=== PATIENT | female | born 1945 | race Caucasian/White ===

== ENCOUNTER 2022-04-05 14:54 | Emergency (ER) | payer BC, OTHER ==
--- OUTSIDE RECORDS SUMMARY | 2022-04-05 15:01 | XMS REPORT | Continuity of Care Document ---
:1945 Author Organization [facility] t Address [address] [place] [address] Care Team Providers Name Role Phone SAROJ CALIX Attending Clinician Unavailable GC_SWHATBIC_Cone_S Attending Clinician Unavailable Mackenzie Beckford Attending Clinician Unavailable GC_SWHATBIC_Cone_S Admitting Clinician Unavailable Payers Payer Name Policy Type Policy Number Effective Date Expiration Date S ource PPO/EPO - BCBS [id number] INDEMNITY/TRADITI [id number] 2015 00:00:00 [place] CHO[place] [id number] 2019 00:00:00 [place]) [id number] 2008 00:00:00 Problems This patient has no known problems. Allergies, Adverse Reactions, Alerts Allergy Allergy Status Severity Reaction(s) Onset Inactive Treating Comm ents Source Name Type Date Date Clinician Sulfamet Drug Active Rash 2015-[address] [facility] hoxazole Allergy 05-12 [facility] No Known DA Active [facility] 09[facility]18 [facility] [place] Social History Social Habit Start Date Stop Date Quantity Comments Source Alcohol intake 2016-03-11 2016-03-11 Current drinker [facility]RIANNA [facility] (finding) Sex Assigned At [birth year] [facility] kes 00:00:00 00:00:00 [facility] Center Smoking Status Start Date Stop Date Source Never smoker [facility] Medications Ordered Filled Start Stop Current Ordering Indication Dosage Frequency Signature Comments Components Source Medication Medication Date Date Medication? Clinician (SIG) Name Name difjaniepredna 2015-03 Yes Apply to [facility] 2-15 eye(s). [facility] (DUREZOL) 10:39: Medical 0.05 % Drop 54 Center bromfenac 2015-03 Yes Apply to [facility] St (PROLENSA) 2-15 eye(s). [facility] 0.07 % Drop 10:39: Medica l 54 Center polymyxin B 2015-03 Yes 1[drp] Place [address] sulf-trimet 2-15 drop into Bak[facility] es hoprim 10:39: the left Medical (POLYTRIM) 54 eye every Cent er 10,000 4 (four) unit- 1 hours. mg/mL Drop FOLIC 2015-03 Yes Take by [facility] ACID/MULTIV 2-15 mouth. [facility] IT-MIN/LUTE 10:39: Medica l [place] (CENTRUM 54 Center SILVER ORAL) VIT C/VIT 2015-03 Yes [facility] by [facility] E/[place]IN/[place] 2-15 mouth. [facility] N/OMEGA-3 10:39: Medical (OCUVITE 54 Center ORAL) docusate 2015-03 Yes 100mg Q.5D Take [address] sodium 2-15 mg by [facility] (COLACE) 10:39: mouth 2 Medica l 100 MG 54 (two) Center capsule times daily. Procedures Procedure Date / Time Performed Performing Clinician Souleymane martinez YAG CAPSULOTOMY - OS - 2021-12-18 12:30:07 [facility] EYE Medicine Encounters Start End Encounter Admission Attending Care Care Encounter Source Date/Time Date/Time Type Type Clinicians Facility Department ID 2021-12-30 2021-12-30 Outpatient CATRINA CALIX [id number] [facility] 13:52:03 14:57:09 SAROJ simental of Medicin e 2021-12-29 2021-12-29 Outpatient GC_SWHATBIC PRIV PRIV [id number] [facility] 00:00:00 00:00:00 _Cone_S [id number] Medica l 2021-12-18 2021-12-18 Outpatient CATRINA CALIX BCM [id number] [facility] 10:59:01 12:22:16 SAROJ Colle ge of Medicin e 2021-10-02 2021-10-02 Outpatient CATRINA CALIX BCM [id number] [facility] 13:36:44 15:02:10 SAROJ Colle ge of Medicin e 2021-01-06 2021-01-06 Outpatient GC_SWHATBIC PRIV PRIV [id number] [facility] 00:00:00 00:00:00 _Cone_S [id number] Medica l 2019-10-29 2019-10-29 Outpatient DASHAWN Beckford [id number] [facility] 13:51:00 13:51:00 Mackenzie Grant Results Test Description Test Time Test Comments Results Result [facility] e Comments - US TRANSVAGINAL 2018-04-24 Patient Name: W/PELVIS 16:01:00 JUDAH AMAYA Unit No: [id number] Report Has Been Amended EXAMS: CPT CODE: [id number] US TRANSVAGINAL W/PELVIS 73808 Addendum - 04/24/2018 SIGNED 04/24/2018 ADDENDUM: [id number] US/TRANPL ADDENDUM: The findings and impression were discussed with Dr. Villagran on 04/24/2018 at approximately 1600 hours. at 1601 Reported and signed by: Lizett Grimaldo MD Transcribed: 04/24/2018 (1606) tLINDA.[facility] Report EXAMINATION: Pelvic ultrasound 04/24/2018. CLINICAL HISTORY: Postmenopausal bleeding. COMPARISON: None. FINDINGS: Transabdominal and transvaginal pelvic ultrasound was performed. The uterus measures 68 x 34 x 48 mm. The endometrium measures 17 mm in AP diameter. There is a posterior intramural fibroid which measures 11 x 8 x 12 mm. The ovaries are visualized transabdominally only. They are within normal limits in appearance. The right ovary measures 18 x 8 x 10 mm and the left ovary measures 14 x 6 x 12 mm. No free fluid is present in the pelvis. IMPRESSION: 1. Prominent endometrium. In this patient with postmenopausal bleeding, considerations include endometrial hyperplasia, endometrial polyp, and endometrial carcinoma. Further evaluation with endometrial biopsy is recommended. at 1556 Reported and signed by: Lizett Grimaldo MD CC: Dulce Villagran Technologist: Trini Mclain RDMS Probe: [id number] Trnscrbd D/ (0421) t.SDR.WSC Orig Print D/T: S: 04/24/2018 (5862) [facility] NAME: JOSE LUISJUDAHMARIBEL AL Radiology Department PHYS: Dulce Jimenez MD [address] : 1945 AGE: 72 SEX: F [place] [address] LOC: [place].RAD PHONE #: [phone] EXAM DATE: 04/24/2018 STATUS: REG CLI FAX #: [phone] RAD NO: Page 1 Signed Report Patient Name: JUDAH AMAYA Unit No: [id number] Report Has Been Amended EXAMS: CPT CODE: [id number] US TRANSVAGINAL W/PELVIS 87063 (Continued) [facility] NAME: JUDAH AMAYA SERVANDO Radiology Department PHYS: Dulce Jimenez MD [address] : 1945 AGE: 72 SEX: F [place] [address] LOC: [place].RAD PHONE #: [phone] EXAM DATE: 04/24/2018 STATUS: REG CLI FAX #: [phone] RAD NO: Page 2 Signed Report - US PELVIS 2018-04-24 Patient Name: CAPRICE 16:01:00 JUDAH AMAYA Unit No: [id number] Report Has Been Amended EXAMS: CPT CODE: [id number] US PELVIS COMPLETE 22985 Addendum - 04/24/2018 SIGNED 04/24/2018 ADDENDUM: [id number] US/USPELNOBC ADDENDUM: The findings and impression were discussed with Dr. Villagran on 04/24/2018 at approximately 1600 hours. at 1601 Reported and signed by: Lizett Grimaldo MD Transcribed: 04/24/2018 (1601) [facility] Report EXAMINATION: Pelvic ultrasound 04/24/2018. CLINICAL HISTORY: Postmenopausal bleeding. COMPARISON: None. FINDINGS: Transabdominal and transvaginal pelvic ultrasound was performed. The uterus measures 68 x 34 x 48 mm. The endometrium measures 17 mm in AP diameter. There is a posterior intramural fibroid which measures 11 x 8 x 12 mm. The ovaries are visualized transabdominally only. They are within normal limits in appearance. The right ovary measures 18 x 8 x 10 mm and the left ovary measures 14 x 6 x 12 mm. No free fluid is present in the pelvis. IMPRESSION: 1. Prominent endometrium. In this patient with postmenopausal bleeding, considerations include endometrial hyperplasia, endometrial polyp, and endometrial carcinoma. Further evaluation with endometrial biopsy is recommended. at 1556 Reported and signed by: Lizett Grimaldo MD CC: Dulce Villagran Technologist: Trini Mclain RDMS Probe: Trnscrbd D/ (0456) [facility] Orig Print D/T: S: 04/24/2018 (7867) [facility] NAME: JUDAH AMAYA Radiology Department PHYS: Dulce Jimenez MD [address] : 1945 AGE: 72 SEX: F [place], [place] [address] LOC: F.RAD PHONE #: [phone] EXAM DATE: 04/24/2018 STATUS: REG CLI FAX #: [phone] RAD NO: Page 1 Signed Report Patient Name: JUDAH AMAYA SERVANDO Unit No: [id number] Report Has Been Amended EXAMS: CPT CODE: [id number] US PELVIS COMPLETE 83423 (Continued) [facility] NAME: JUDAH AMAAY Radiology Department PHYS: Dulce Jimenez MD [address] : 1945 AGE: 72 SEX: F [place] [address] LOC: [place].RAD PHONE #: [phone] EXAM DATE: 04/24/2018 STATUS: REG CLI FAX #: [phone] RAD NO: Page 2 Signed Report - US TRANSVAGINAL 2018-04-24 Patient Name: W/PELVIS 15:56:00 JUDAH AMAYA Unit No: [id number] EXAMS: CPT CODE: [id number] US TRANSVAGINAL W/PELVIS 62098 EXAMINATION: Pelvic ultrasound 04/24/2018. CLINICAL HISTORY: Postmenopausal bleeding. COMPARISON: None. FINDINGS: Transabdominal and transvaginal pelvic ultrasound was performed. The uterus measures 68 x 34 x 48 mm. The endometrium measures 17 mm in AP diameter. There is a posterior intramural fibroid which measures 11 x 8 x 12 mm. The ovaries are visualized transabdominally only. They are within normal limits in appearance. The right ovary measures 18 x 8 x 10 mm and the left ovary measures 14 x 6 x 12 mm. No free fluid is present in the pelvis. IMPRESSION: 1. Prominent endometrium. In this patient with postmenopausal bleeding, considerations include endometrial hyperplasia, endometrial polyp, and endometrial carcinoma. Further evaluation with endometrial biopsy is recommended. at 1556 Reported and signed by: Lizett Grimaldo MD CC: Dulce Villagran Technologist: Trini Mclain RDMS Probe: [id number] Trnscrbd D/ (1556) t.SDR.[facility] Orig Print D/T: S: 04/24/2018 (3097) [facility] NAME: AMAYAJUDAH SERVANDO Radiology Department PHYS: Dulce Jimenez MD [address] : 1945 AGE: 72 SEX: F [place] [address] LOC: [place].RAD PHONE #: [phone] EXAM DATE: 04/24/2018 STATUS: REG CLI FAX #: [phone] RAD NO: Page 1 Signed Report Patient Name: JUDAH AMAYA Unit No: [id number] EXAMS: CPT CODE: [id number] US TRANSVAGINAL W/PELVIS 42163 (Continued) [facility] NAME: JUDAH AMAYA Radiology Department PHYS: Dulce Jimenez MD [address] : 1945 AGE: 72 SEX: F [place] [address] LOC: F.RAD PHONE #: [phone] EXAM DATE: 04/24/2018 STATUS: REG CLI FAX #: [phone] RAD NO: Page 2 Signed Report - US PELVIS 2018-04-24 Patient Name: COMPLETE 15:56:00 JUDAH AMAYA Unit No: [id number] EXAMS: CPT CODE: [id number] US PELVIS COMPLETE 46725 EXAMINATION: Pelvic ultrasound 04/24/2018. CLINICAL HISTORY: Postmenopausal bleeding. COMPARISON: None. FINDINGS: Transabdominal and transvaginal pelvic ultrasound was performed. The uterus measures 68 x 34 x 48 mm. The endometrium measures 17 mm in AP diameter. There is a posterior intramural fibroid which measures 11 x 8 x 12 mm. The ovaries are visualized transabdominally only. They are within normal limits in appearance. The right ovary measures 18 x 8 x 10 mm and the left ovary measures 14 x 6 x 12 mm. No free fluid is present in the pelvis. IMPRESSION: 1. Prominent endometrium. In this patient with postmenopausal bleeding, considerations include endometrial hyperplasia, endometrial polyp, and endometrial carcinoma. Further evaluation with endometrial biopsy is recommended. at 1556 Reported and signed by: Lizett Grimaldo MD CC: Dulce Villagran Technologist: Trini Mclain RDMS Probe: Trnscrbd D/ (1556) Isaiah Orig Print D/T: S: 04/24/2018 (1559) [facility] NAME: JUDAH AMAYA Radiology Department PHYS: Dulce Jimenez MD [address] : 1945 AGE: 72 SEX: F [place], [place] [address] LOC: [facility]erRAD PHONE #: [phone] EXAM DATE: 04/24/2018 STATUS: REG CLI FAX #: [phone] RAD NO: Page 1 Signed Report Patient Name: JUDAH AMAYA Unit No: [id number] EXAMS: CPT CODE: [id number] US PELVIS COMPLETE 24905 (Continued) [facility] NAME: MARCI AMAYAMARIBEL AL Radiology Department PHYS: Dulce Jimenez MD [address] : 1945 AGE: 72 SEX: F [place], [place] [address] LOC: [facility] PHONE #: [phone] EXAM DATE: 04/24/2018 STATUS: REG CLI FAX #: [phone] RAD NO: Page 2 Signed Report
[2022-04-05] MEDS ORDERED: LIDOCAINE 1% MPF 5 ML VIAL ONE (15:26)
[2022-04-05] MEDS ORDERED: LIDOCAINE 1% MPF 30 ML VIAL ONE (15:39)
--- NOTE | 2022-04-05 15:44 | RAD REPORT ---
EXAM DESCRIPTION: CT - CTHCSPWOC - 04/05/2022 3:28 pm CLINICAL HISTORY: Trauma, head and neck injury. fall COMPARISON: No comparisons TECHNIQUE: Axial 5 mm thick images of the head were obtained. Axial 2 mm thick images of the cervical spine were obtained with sagittal and coronal reconstruction images generated and reviewed. All CT scans are performed using dose optimization technique as appropriate and may include automated exposure control or mA/KV adjustment according to patient size. FINDINGS: CT HEAD WITHOUT CONTRAST: No acute hemorrhage, hydrocephalus or extra-axial collection is identified.No areas of brain edema or midline shift. The paranasal sinuses and mastoids are clear.The calvarium is intact. CT CERVICAL SPINE WITHOUT CONTRAST: No fracture or subluxation.Mild mid and lower cervical degenerative spondylosis.No prevertebral soft tissues swelling is identified. Carotid atherosclerosis bilaterally. IMPRESSION: No acute intracranial or cervical spine findings.
[2022-04-05] MEDS ORDERED: ACETAMINOPHEN 325 MG TABLET ONE (16:20)
[2022-04-05] MEDS ORDERED: TDAP (DIPHTH,PERTUSS(ACELL),TET VAC) 0.5 ML VIAL IMVAC ONE (16:21)
[2022-04-05] MEDS ORDERED: HYDROCODONE/APAP 5/325 MG TAB ONE (16:21)
--- NOTE | 2022-04-05 16:37 | RAD REPORT ---
EXAM DESCRIPTION: RAD - Ankle Left 3 View - 04/05/2022 4:25 pm CLINICAL HISTORY: PAIN COMPARISON: No comparisons FINDINGS: Soft tissue swelling is seen about the ankle. The bones are demineralized. Moderate intert arsal degenerative changes. No acute fracture is evident. Prominent plantar calcaneal spur.
[2022-04-05] MEDS ORDERED: LIDOCAINE 1% W/EPI 1:100,000 30 ML VIAL SQ SCH (17:00)
--- NOTE | 2022-04-05 17:37 | ER ---
Nurse's Notes [facility] Name: Hilary Lowe Age: 76 yrs Sex: Female : 1945 Arrival Date: 04/05/2022 Time: 14:58 Bed 18 Private MD: Clint Anton Diagnosis: Laceration without foreign body of unspecified part of head;Sprain of ankle-left;Fall on same level from slipping, tripping and stumbling with subsequent striking against object Presentation: 04/05 15:05 Chief complaint: Patient states: I was on my way to my 6th period class, and she iw tripped up the stairs, hit head on the door frame, laceration to left side of forehead, no LOC , also thinks she twisted her ankle. 15:05 Acuity: KAMERON 4 iw 15:06 Coronavirus screen: At this time, the client does not indicate any symptoms associated iw with coronavirus-19. Ebola Screen: Patient negative for fever greater than or equal to 101.5 degrees Fahrenheit, and additional compatible Ebola Virus Disease symptoms Patient denies exposure to infectious person. Patient denies travel to an Ebola-affected area in the 21 days before illness onset. No symptoms or risks identified at this time. Initial Sepsis Screen: Does the patient meet any 2 criteria? No. Patient's initial sepsis screen is negative. Does the patient have a suspected source of infection? No. Patient's initial sepsis screen is negative. Risk Assessment: Do you want to hurt yourself or someone else? Patient reports no desire to harm self or others. Onset of symptoms was April 05, 2022. 15:06 Method Of Arrival: Ambulatory iw Historical: - Allergies: 15:08 Bactrim; iw - Home Meds: 15:07 None [Active]; iw - PMHx: 15:07 None; iw - Immunization history:: Adult Immunizations up to date, Client reports receiving the 2nd dose of the Covid vaccine. - Social history:: Smoking status: Patient denies any tobacco usage or history of. Patient/guardian denies using alcohol. Screenin:15 [facility] ED Fall Risk Assessment (Adult) History of falling in the last 3 months, ld1 including since admission Yes- single mechanical fall (1 pt) Confusion or Disorientation No (0 pts) Intoxicated or Sedated No (0 pts) Impaired Gait Yes (1 pt). Abuse screen: Denies threats or abuse. Denies injuries from another. Nutritional screening: No deficits noted. Tuberculosis screening: No symptoms or risk factors identified. Assessment: 16:15 Reassessment: See triage assessment. Pain: Complains of pain in forehead Pain does not ld1 radiate. Pain currently is 8 out of 10 on a pain scale. Quality of pain is described as throbbing. 16:15 Neuro: Level of Consciousness is awake, alert, obeys commands, Oriented to person, ld1 place, time, situation. Cardiovascular: Capillary refill < 3 seconds Patient's skin is warm and dry. Respiratory: Airway is patent Respiratory effort is even, unlabored. GI: Abdomen is round non-distended. : No signs and/or symptoms were reported regarding the genitourinary system. Injury Description: Laceration sustained to forehead a small amount of bleeding noted at this time. Vital Signs: 15:04 BP 191 / 100; Pulse 100; Resp 16; Temp 98.3; Pulse Ox 100% on R/A; iw 16:15 BP 179 / 89; Pulse 101; Resp 18; Pulse Ox 99% on R/A; ld1 16:15 Pain 8/10; ld1 ED Course: 14:58 Patient arrived in ED. mr 14:59 Clint Anton MD is Private Physician. mr 15:06 Triage completed. iw 15:08 Arm band placed on. iw 15:10 Ervin Aleman PA is PHCP. cp 15:10 Ervin Martino MD is Attending Physician. cp 15:10 Imelda Handy, KATHY is Primary Nurse. ld1 15:30 CT Head C Spine In Process Unspecified. EDMS 16:15 Patient has correct armband on for positive identification. Placed in gown. Bed in low ld1 position. Call light in reach. Side rails up X2. secured entrance monitor on. Pulse ox on. NIBP on. Door closed. Noise minimized. Warm blanket given. 16:15 No provider procedures requiring assistance completed. ld1 16:27 XRAY Ankle LEFT 3 view In Process Unspecified. EDMS 17:25 Wound care: to laceration located on face and left eye was cleaned with soaked in jw7 debrided using Patient tolerated well. 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 Exp: ld1 10/09/2022. Lot #: [id number]. } Route: IM; Site: left deltoid; 16:46 Follow up: Response: No adverse reaction ld1 16:25 Drug: Tylenol 650 mg Route: PO; ld1 16:46 Follow up: Response: No adverse reaction ld1 16:25 Drug: HYDROcodone-acetaminophen 5 mg-325 mg 1 tabs Route: PO; ld1 16:46 Follow up: Response: No adverse reaction ld1 16:46 Drug: Lidocaine-Epinephrine -1%: (1:100,000) 10 ml {Note: Administered by raf Atkinson.} Volume: 20 ml; Route: Infiltration; Medication: 16:15 VIS not applicable for this client. ld1 Outcome: 17:36 Discharge ordered by MD. garrison 18:29 Patient left the ED. ld1 Signatures: Dispatcher [employer] Lauren Gipson mr Trini Velazquez RN RN iw Ervin Aleman PA PA cp Dibbern, Lauren, RN RN Ashwini Lees jw7 Corrections: (The following items were deleted from the chart) 15:07 15:05 Chief complaint: Patient states: I was on my way to my 6th period class, and she iw tripped up the stairs, hit head on the door frame, laceration to left side of forehead, no LOC iw 15:08 15:04 Pulse 100bpm; Resp 16bpm; Pulse Ox 100% RA; Temp 98.3F; iw iw
--- NOTE | 2022-04-05 17:37 | EDPHYS ---
Physician Documentation [facility] Name: Hilary Lowe Age: 76 yrs Sex: Female : 1945 Arrival Date: 04/05/2022 Time: 14:58 Bed 18 Private MD: Clint Anton ED Physician Ervin Martino HPI: 04/05 15:30 This 76 yrs old Female presents to ER via Ambulatory with complaints of Fall Injury, cp Laceration To Forehead. 15:30 Details of fall: The patient fell from an upright position, while walking, and struck cp metal door. Onset: The symptoms/episode began/occurred just prior to arrival. Associated injuries: The patient sustained injury to the head, laceration, of the above left eye, left ankle, painful injury. Severity of symptoms: in the emergency department the symptoms are unchanged, despite home interventions. Patient reports losing balance while walking up stairs at school and striking head against metal part of door. No LOC. Historical: - Allergies: 15:08 Bactrim; iw - Home Meds: 15:07 None [Active]; iw - PMHx: 15:07 None; iw - Immunization history:: Adult Immunizations up to date, Client reports receiving the 2nd dose of the Covid vaccine. - Social history:: Smoking status: Patient denies any tobacco usage or history of. Patient/guardian denies using alcohol. ROS: 15:35 Constitutional: Negative for body aches, chills, fever, poor PO intake. cp 15:35 Eyes: Negative for injury, pain, redness, and discharge. cp 15:35 ENT: Negative for drainage from ear(s), ear pain, sore throat, difficulty swallowing, difficulty handling secretions. 15:35 Cardiovascular: Negative for chest pain, palpitations. 15:35 Respiratory: Negative for cough, shortness of breath, wheezing. 15:35 Abdomen/GI: Negative for abdominal pain, nausea, vomiting, and diarrhea. 15:35 MS/extremity: Positive for pain, of the left ankle. 15:35 Neuro: Positive for headache, Negative for altered mental status, dizziness, loss of consciousness, syncope, weakness. 15:35 All other systems are negative. Exam: 15:40 Constitutional: The patient appears in no acute distress, alert, awake, cp non-diaphoretic, non-toxic, well developed, well nourished. 15:40 Head/face: Noted is a laceration(s), that is deep, that is linear, of the above left cp eye. 15:40 Eyes: Pupils: equal, round, and reactive to light and accomodation, Extraocular movements: intact throughout, Conjunctiva: normal, no exudate, no injection, Sclera: no appreciated abnormality, Lids and lashes: appear normal, bilaterally. 15:40 ENT: External ear(s): are unremarkable, Ear canal(s): are normal, clear, TM's: dullness, bilaterally, Nose: is normal, Mouth: Lips: moist, Oral mucosa: moist, Posterior pharynx: Airway: no evidence of obstruction, patent. 15:40 Neck: C-spine: vertebral tenderness, is not appreciated, crepitus, is not appreciated, ROM/movement: pain, is not appreciated, limited range of motion, is not appreciated. 15:40 Chest/axilla: Inspection: normal. 15:40 Cardiovascular: Rate: tachycardic, Edema: is not appreciated, JVD: is not appreciated. 15:40 Respiratory: the patient does not display signs of respiratory distress, Respirations: normal, no use of accessory muscles, no retractions, labored breathing, is not present, Breath sounds: are clear throughout, no decreased breath sounds, no stridor, no wheezing. 15:40 Abdomen/GI: Inspection: abdomen appears normal, Palpation: abdomen is soft and non-tender, in all quadrants. 15:40 Back: pain, is absent, ROM is normal. 15:40 Musculoskeletal/extremity: Extremities: noted in the left ankle: tenderness, There is no evidence of decreased ROM, deformity, ROM: limited passive range of motion due to pain, in the left ankle. 15:40 Neuro: Orientation: to person, place \T\ time. Mentation: is normal, Motor: moves all fours, strength is normal, Sensation: is normal. Vital Signs: 15:04 BP 191 / 100; Pulse 100; Resp 16; Temp 98.3; Pulse Ox 100% on R/A; iw 16:15 BP 179 / 89; Pulse 101; Resp 18; Pulse Ox 99% on R/A; ld1 16:15 Pain 8/10; ld1 Laceration: 17:21 Wound Repair of 4cm ( 1.6in ) subcutaneous laceration to above left eye. Linear cp shaped.. Distal neuro/vascular/tendon intact. Anesthesia: Local anesthetic administered with 8 mls of 1% lidocaine w/ Epi. Wound prep: Simple cleansing by nurse. Skin closed with 7 5-0 Prolene using interrupted sutures and sterile technique. Subcutaneous tissue closed with 4 4-0 Vicryl using simple sutures and sterile technique. Dressed with Bacitracin, 4x4's. Patient tolerated well. MDM: 15:11 Patient medically screened. michela 16:00 Differential diagnosis: abrasion, closed head injury, contusion, fracture, laceration, cp multiple trauma. 17:35 Data reviewed: vital signs, nurses notes, radiologic studies, CT scan, plain films. cp 17:35 Counseling: I had a detailed discussion with the patient and/or guardian regarding: the cp historical points, exam findings, and any diagnostic results supporting the discharge/admit diagnosis, radiology results, the need for outpatient follow up, a family practitioner, to return to the emergency department if symptoms worsen or persist or if there are any questions or concerns that arise at home. 17:35 Response to treatment: the patient's symptoms have markedly improved after treatment, cp and as a result, I will discharge patient. Special discussion: Based on the patient's history, exam and DX evaluation, there is no indication for emergent intervention or inpatient TX. It is understood by the patient/guardian that if the SXs persist or worsen they need to return immediately for re-evaluation. 04/05 15:16 Order name: CT Head C Spine; Complete Time: 15:46 04/05 15:46 Interpretation: Reviewed report. 04/05 15:52 Order name: XRAY Ankle LEFT 3 view; Complete Time: 16:42 04/05 16:42 Interpretation: Report reviewed. 04/05 15:16 Order name: Dressing - Wound; Complete Time: 15:28 04/05 15:16 Order name: Gloves, Sterile; Complete Time: 15:28 04/05 15:16 Order name: Setup Suture Tray; Complete Time: 15:28 04/05 16:32 Order name: Wound Care: please clean and irrigate wound; Complete Time: 16:51 04/05 17:21 Order name: Wound dressing; Complete Time: 18:09 04/05 17:21 Order name: Tree wrap-joint; Complete Time: 18:09 cp Administered Medications: 16:25 Drug: Tetanus-Diphtheria Toxoid Adult 0.5 ml {Enrollment Management Coordinator: [employer] Exp: ld1 10/09/2022. Lot #: [id number]. } Route: IM; Site: left deltoid; 16:46 Follow up: Response: No adverse reaction ld1 16:25 Drug: Tylenol 650 mg Route: PO; ld1 16:46 Follow up: Response: No adverse reaction ld1 16:25 Drug: HYDROcodone-acetaminophen 5 mg-325 mg 1 tabs Route: PO; ld1 16:46 Follow up: Response: No adverse reaction ld1 16:46 Drug: Lidocaine-Epinephrine -1%: (1:100,000) 10 ml {Note: Administered by raf Atkinson.} Volume: 20 ml; Route: Infiltration; Disposition Summary: 04/05/22 17:36 Discharge Ordered Location: Home cp Problem: new cp Symptoms: have improved cp Condition: Stable cp Diagnosis - Laceration without foreign body of unspecified part of head cp - Sprain of ankle - left cp - Fall on same level from slipping, tripping and stumbling with subsequent striking cp against object Followup: cp - With: Private Physician - When: 1 week - Reason: Staple/Suture removal Discharge Instructions: - Discharge Summary Sheet cp - Ankle Sprain cp - Head Injury, Adult cp - Facial Laceration cp - Sutured Wound Care cp Forms: - Medication Reconciliation Form cp - Thank You Letter cp - Antibiotic Education cp - Prescription Opioid Use cp - Work release form ld1 Signatures: Dispatcher [employer] Ervin Becerra MD MD cha Williams, Irene, Ervin Pierson RN, PA PA cp Imelda Handy, RN RN ld1
[2022-04-05 19:40] VITALS: TEMP 98.3
[2022-04-05 19:42] VITALS: BP 179/89; O2SAT 99
== END 2022-04-05 18:29 | disposition home or self-care (01) ==
LOC: ER 14:54
PROC: 0HQ1XZZ Repair Face Skin, External Approach (ICD-10-PCS; principal; 2022-04-05)
DX: S01.81XA Laceration without foreign body of other part of head, initial encounter (principal); S93.402A Sprain of unspecified ligament of left ankle, initial encounter; W01.10XA Fall on same level from slipping, tripping and stumbling with subsequent striking against unspecified object, initial encounter; Z23 Encounter for immunization; Z88.1 Allergy status to other antibiotic agents
CPT/HCPCS: 70450; 72125; 90471; 90714; 99284; J2001

== ENCOUNTER 2022-04-16 15:50 | Emergency (ER) | payer OTHER ==
--- OUTSIDE RECORDS SUMMARY | 2022-04-16 15:53 | XMS REPORT | Continuity of Care Document ---
:1945 Author Organization [facility] t Address [address] [place] [address] Care Team Providers Name Role Phone PCP, PATIENT DOES NOT HAVE A Primary Care Physician Unavaila ble ZABRINA LAMA Attending Clinician Unavailable Zabrina Lama MD Attending Clinician SAROJ CALIX Attending Clinician Unavailable GC[facility]WHATBIC[facility]_S Attending Clinician Unavailable Mackeznie Beckford Attending Clinician Unavailable [facility]S Admitting Clinician Unavailable Payers Payer Name Policy Type Policy Number Effective Date Expiration Date S ource [employer] GENERIC [id number] 2022 00:00:00 PPO/EPO - BCBS [id number] INDEMNITY/TRADITI [id number] 2015 00:00:00 [place] CHO[place] [id number] 2019 00:00:00 [place]) [id number] 2008 00:00:00 Problems Condition Condition Condition Status Onset Resolution Last Treating Co mments Source Name Details Category Date Date Treatment Clinician Date No known No known Disease Unive rs active active ity of problems problems [facility] Allergies, Adverse Reactions, Alerts Allergy Allergy Status Severity Reaction(s) Onset Inactive Treating Comm ents Source Name Type Date Date Clinician SULFAMET DRUG Active High Rash 2015-03 Univers HOXAZOLE 2-15 ity of -TRIMETH 00:00: [place] OPRIM 00 Medical Branch Sulfamet Drug Active Rash 2015-03 [facility] hoxazole Allergy 2-15 [facility] 00:00: Medical oprim 00 Center No Known DA Active U [facility] Allergie [address] [facility] 00:[facility]: [facility] l [facility] [place] NO KNOWN Drug Active Univers ALLERGIE Class ity of S [facility] Social History Social Habit Start Date Stop Date Quantity Comments Source Exposure to 2022-04-04 2022-04-14 Not sure [facility] SARS-CoV-2 00:00:00 14:30:00 [facility] (event) Branch Alcohol intake 2016-03-11 2016-03-11 [facility] alcohol [facility] (finding) Sex Ass[birth year] At [birth year] BRIANNA Islas kes 00:00:00 00:00:00 Medical Center Smoking Status Start Date Stop Date Source Tobacco smoking consumption Univ ersity of [facility] unknown Branch Never smoker [facility] Medications Ordered Filled Start Stop Current Ordering Indication Dosage Frequency Signature Comments Components Source Medication Medication Date Date Medication? Clinician (SIG) Name Name No known No No known Unive rs medications -18 medication it y of 14:46: [address] No known No No known Unive rs medications -18 medication it y of 14:46: [address] No known No No known Unive rs medications -18 medication it y of 14:46: [address] polymyxin B 2015-03 Yes 1[drp] Place 1 [...] 2015-03 Yes Take by [facility] E/LUTEIN/ID 2-15 mouth. [facility] N/OMEGA-3 10:39: Medical (OCUVITE 54 Center ORAL) docusate 2015-03 Yes 100mg Q.5D Take [address] sodium 2-15 mg by [facility]ukes (COLACE) 10:39: mouth 2 Medica l 100 MG 54 (two) Center capsule times daily. diflupredna 2015-03 Yes Apply to [facility] te 2-15 eye(s). [facility] (DUREZOL) 10:39: Medical 0.05 % Drop 54 Center bromfenac 2015-03 Yes Apply to [facility] (PROLENSA) 2-15 eye(s). [facility] 0.07 % Drop 10:39: Medica l 54 Center diflupredna 2015-03 Yes Apply to [facility] te 2-15 eye(s). [facility] (DUREZOL) 10:39: Medical 0.05 % Drop 54 Center bromfenac 2015-03 Yes Apply to [facility] (PROLENSA) 2-15 eye(s). [facility] 0.07 % Drop 10:39: Medica l 54 Center polymyxin B 2015-03 Yes 1[drp] Place [address] sulf-trimet 2-15 drop into [facility] hopri 10:39: the left Medical (POLYTRIM) 54 eye every Cent er 10,000 4 (four) unit- 1 hours. mg/mL Drop FOLIC 2015-03 Yes Take by [facility] ACID/MULTIV 2-15 mouth. [facility] IT-MIN/LUTE 10:39: Medica l [place] (CENTRUM 54 Center SILVER ORAL) VIT C/VIT 2015-03 Yes Take by [facility] E/LUTEIN/ID 2-15 mouth. [facility] N/OMEGA-3 10:39: Medical (OCUVITE 54 Center ORAL) docusate 2015-03 Yes 100mg Q.5D Take [address] sodium 2-15 mg by Lukes (COLACE) 10:39: mouth 2 Medica l 100 MG 54 (two) Center capsule times daily. Immunizations Ordered Filled Immunization Date Status Comments [facility] e Immunization Name Name SARS-COV-2 COVID-19 2021-01-23 Completed Unive rsity of MODERNA 0.25ML 00:00:00 [place] Medi jan BOOSTER VACCINE Branch SARS-COV-2 COVID-19 2021-01-23 Completed Unive rsity of MODERNA 0.25ML 00:00:00 [place] Medi jan BOOSTER VACCINE Branch SARS-COV-2 COVID-19 2021-01-23 Completed Unive rsity of MODERNA 0.25ML 00:00:00 [facility] Vital Signs Vital Name Observation Time Observation Value Comments Source Systolic blood 2022-04-14 203 mm[Hg] pt request in 1 University of pressure 20:42:[address] [facility] Diastolic blood 2022-04-14 111 mm[Hg] pt request in 1 Universit y of pressure 20:42:[address] [facility] Heart rate 2022-04-14 101 /min University of 20:42:[address] [facility] Body height 2022-04-14 158.8 cm University of 20:42:[address] [facility] Body weight 2022-04-14 86.183 kg University of 20:42:[address] [facility] BMI 2022-04-14 34.20 kg/m2 University 20:42:[address] [facility] Procedures Procedure Date / Time Performed Performing Clinician Sour e YAG CAPSULOTOMY - OS - 2021-12-18 12:30:07 [facility] EYE Medicine Encounters Start End Encounter Admission Attending Care Care Encounter Source Date/Time Date/Time Type Type Clinicians Facility Department ID 2022-04-14 2022-04-14 [id number] Univers 14:30:00 15:29:02 ZABRINALESLY [place] [facility] 2022-04-14 2022-04-14 Office Kelby [facility] [id number] Univers 14:30:00 15:29:02 Visit Zabrina Sheehan [facility] [id number] it y of [place] [id number] James as ARELI?BLEA [id number] [address] MEDICAL OFFICE [facility] 2022-04-14 2022-04-14 [email or web address] [id number] Univers 00:00:00 00:00:00 (Out) Zabrina BHATTI [id number] it y of [place] [id number] James as ARELI?BLEA [id number] [address] MEDICAL OFFICE BUILDING 2021-12-30 2021-12-30 Outpatient CATRINA CALIX [facility] [id number] [facility] 13:52:03 14:57:09 SAROJ Colle ge of Medicin e 2021-12-29 2021-12-29 Outpatient GC_SWHATBIC PRIV PRIV [id number] [facility] 00:00:00 00:00:00 _[facility]_S [id number] Medica l 2021-12-18 2021-12-18 Outpatient CATRINA CALIX M [id number] [facility] 10:59:01 12:22:16 SAROJ Colle ge of Medicin e 2021-10-02 2021-10-02 Outpatient YOGI, Colt [facility] [id number] [facility] 13:36:44 15:02:10 SAROJ Colle ge of Medicin e 2021-01-06 2021-01-06 Outpatient GC_SWHATBIC PRIV PRIV [id number] [facility] 00:00:00 00:00:00 _[facility]_S [id number] Medica l 2019-10-29 2019-10-29 Outpatient DASHAWN Beckford [id number] [facility] 13:51:00 13:51:00 Mackenzie Grant Results Test Description Test Time Test Comments Results Result [facility] e Comments - US TRANSVAGINAL 2018-04-24 Patient Name: W/PELVIS 16:01:00 JUDAH LOWE Unit No: [id number] Report Has Been Amended EXAMS: CPT CODE: [id number] US TRANSVAGINAL W/PELVIS 81714 Addendum - 04/24/2018 SIGNED 04/24/2018 ADDENDUM: [id number] US/TRANPL ADDENDUM: The findings and impression were discussed with Dr. Villagran on 04/24/2018 at approximately 1600 hours. at 1601 Reported and signed by: Lizett Grimaldo MD Transcribed: 04/24/2018 (0248) [place] Report EXAMINATION: Pelvic ultrasound 04/24/2018. CLINICAL HISTORY: [...] Dulce Villagran Technologist: Trini Mclain RDMS Probe: [id number] Trnscrbd D/ (2208) t.VICTORINOR.[facility] Orig Print D/T: S: 04/24/2018 (7851) [facility] NAME: JOSE LUISJUDAHMARIBEL AL Radiology Department PHYS: Dulce Jimenez MD [address] : 1945 AGE: 72 SEX: F [place] [address] LOC: .RAD PHONE #: [phone] EXAM DATE: 04/24/2018 STATUS: REG CLI FAX #: [phone] RAD NO: Page 1 Signed Report Patient Name: JUDAH LOWE Unit No: [id number] Report Has Been Amended EXAMS: CPT CODE: [id number] US TRANSVAGINAL W/PELVIS 27684 (Continued) [facility] NAME: JUDAH LOWE Radiology Department PHYS: Dulce Jimenez MD [address] : 1945 AGE: 72 SEX: F [place] [address] LOC: Lwarence.RAD PHONE #: [phone] EXAM DATE: 04/24/2018 STATUS: REG CLI FAX #: [phone] RAD NO: Page 2 Signed Report - US PELVIS 2018-04-24 Patient Name: COMPLETE 16:01:00 JUDAH LOWE Unit No: [id number] Report Has Been Amended EXAMS: CPT CODE: [id number] US PELVIS COMPLETE [id number] Addendum - 04/24/2018 SIGNED 04/24/2018 ADDENDUM: [id number] US/USPELNOBC ADDENDUM: The findings and impression were discussed with Dr. Villagran on 04/24/2018 at approximately 1600 hours. at 1601 Reported and signed by: Lizett Grimaldo MD Transcribed: 04/24/2018 (5321) [facility] EXAMINATION: Pelvic ultrasound 04/24/2018. CLINICAL HISTORY: [...] evaluation with endometrial biopsy is recommended. at 1558 Reported and signed by: Lizett Grimaldo MD CC: Dulce Villagran Technologist: Trini Mclain RDMS Probe: Trnscrbd D/ (6888) [facility] Orig Print D/T: S: 04/24/2018 (2145) [facility] NAME: JUDAH LOWE Radiology Department PHYS: Dulce Jimenez MD [address] : 1945 AGE: 72 SEX: F [place], [place] [address] LOC: [place].RAD PHONE #: [phone] EXAM DATE: 04/24/2018 STATUS: REG CLI FAX #: [phone] RAD NO: Page 1 Signed Report Patient Name: JUDAH LOWE Unit No: [id number] Report Has Been Amended EXAMS: CPT CODE: [id number] US PELVIS COMPLETE 98300 (Continued) [facility] [place] NAME: JUDAH LOWE SERVANDO Radiology Department PHYS: Dulce Jimenez MD [address] : 1945 AGE: 72 SEX: F [place] [address] LOC: F.RAD PHONE #: [phone] EXAM DATE: 04/24/2018 STATUS: REG CLI FAX #: [phone] RAD NO: Page 2 Signed Report - US TRANSVAGINAL 2018-04-24 Patient Name: W/PELVIS 15:56:00 JUDAH LOWE Unit No: [id number] EXAMS: CPT CODE: [id number] US TRANSVAGINAL W/PELVIS 02887 EXAMINATION: Pelvic ultrasound 04/24/2018. CLINICAL HISTORY: Postmenopausal [...] signed by: Lizett Grimaldo MD CC: Dulce Vlilagran Technologist: Trini Mclain RDMS Probe: [id number] Trnscrbd D/ (1556) Isaiah Orig Print D/T: S: 04/24/2018 (0876) [facility] NAME: JUDAH LOWE Radiology Department PHYS: Dulce Jimenez MD [address] : 1945 AGE: 72 SEX: F [place], [place] [address] LOC: HuberRAD PHONE #: [phone] EXAM DATE: 04/24/2018 STATUS: REG CLI FAX #: [phone] RAD NO: Page 1 Signed Report Patient Name: JUDAH LOWE Unit No: [id number] EXAMS: CPT CODE: [id number] US TRANSVAGINAL W/PELVIS 88321 (Continued) [facility] NAME: JUDAH LOWE Radiology Department PHYS: Dulce Jimenez MD [address] : 1945 AGE: 72 SEX: F [place] [address] LOC: HuberRAD PHONE #: [phone] EXAM DATE: 04/24/2018 STATUS: REG CLI FAX #: [phone] RAD NO: Page 2 Signed Report - US PELVIS 2018-04-24 Patient Name: COMPLETE 15:56:00 JUDAH LOWE Unit No: [id number] EXAMS: CPT CODE: [id number] US PELVIS COMPLETE 43978 EXAMINATION: Pelvic ultrasound 04/24/2018. CLINICAL HISTORY: Postmenopausal [...] evaluation with endometrial biopsy is recommended. at 1557 Reported and signed by: Lizett Grimaldo MD CC: Dulce Villagran Technologist: Trini Mclain RDMS Probe: Trnscrbd D/ (0876) t.SDR.[facility] Orig Print D/T: S: 04/24/2018 (1559) [facility] NAME: JUDAH LOWE Radiology Department PHYS: Dulce Jimenez MD [address] : 1945 AGE: 72 SEX: F [place] [address] LOC: F.RAD PHONE #: [phone] EXAM DATE: 04/24/2018 STATUS: REG CLI FAX #: [phone] RAD NO: Page 1 Signed Report Patient Name: JUDAH LOWE SERVANDO Unit No: [id number] EXAMS: CPT CODE: [id number] US PELVIS COMPLETE 35388 (Continued) [facility] NAME: JUDAH LOWE Radiology Department PHYS: Dulce Jimenez MD [address] : 1945 AGE: 72 SEX: F [place] [address] LOC: F.RAD PHONE #: [phone] EXAM DATE: 04/24/2018 STATUS: REG CLI FAX #: [phone] RAD NO: Page 2 Signed Report
[2022-04-16] MEDS ORDERED: LIDOCAINE HCL JELLY 2% 6 ML SYRINGE TOP ONE (16:31)
--- NOTE | 2022-04-16 18:03 | ER ---
Nurse's Notes [facility] Name: Hilary Lowe Age: 76 yrs Sex: Female : 1945 Arrival Date: 04/16/2022 Time: 15:51 Bed 10 Private MD: Clint Anton Diagnosis: Encounter for removal of sutures Presentation: 04/16 15:59 Chief complaint: Patient states: needs sutures removed from left eyebrow has 4 internal iw and 7 external. Coronavirus screen: At this time, the client does not indicate any symptoms associated with coronavirus-19. Ebola Screen: Patient negative for fever greater than or equal to 101.5 degrees Fahrenheit, and additional compatible Ebola Virus Disease symptoms Patient denies exposure to infectious person. Patient denies travel to an Ebola-affected area in the 21 days before illness onset. No symptoms or risks identified at this time. Initial Sepsis Screen: Does the patient meet any 2 criteria? No. Patient's initial sepsis screen is negative. Does the patient have a suspected source of infection? No. Patient's initial sepsis screen is negative. Risk Assessment: Do you want to hurt yourself or someone else? Patient reports no desire to harm self or others. Onset of symptoms was April 05, 2022. 15:59 Method Of Arrival: Ambulatory iw 15:59 Acuity: KAMERON 5 iw Historical: - Allergies: 16:10 Bactrim; iw - Immunization history:: Adult Immunizations unknown. - Social history:: Smoking status: Patient denies any tobacco usage or history of. Screenin:10 [facility] ED Fall Risk Assessment (Adult) History of falling in the last 3 months, iw including since admission Yes- single mechanical fall (1 pt). Abuse screen: Denies threats or abuse. Denies injuries from another. Nutritional screening: No deficits noted. Tuberculosis screening: No symptoms or risk factors identified. Assessment: 16:10 General: Appears in no apparent distress. Behavior is calm, cooperative. Pain: Denies iw pain. Neuro: Level of Consciousness is awake, alert, obeys commands. 18:04 Reassessment: No changes from previously documented assessment. Patient and/or family mb9 updated on plan of care and expected duration. Pain level reassessed. Patient is alert, oriented x 3, equal unlabored respirations, skin warm/dry/pink. Vital Signs: 16:04 BP 175 / 93; Pulse 82; Resp 16; Pulse Ox 98% on R/A; iw 18:04 BP 162 / 89; Pulse 78; Resp 18; Pulse Ox 99% ; mb9 ED Course: 15:51 Patient arrived in ED. as 15:51 Clint Anton MD is Private Physician. as 16:00 Triage completed. iw 16:00 Arm band placed on. iw 16:01 James Dietrich PA is PHCP. [facility] 16:01 Ricardo Mabry DO is Attending Physician. [facility] 16:03 PHCP role handed off by James Dietrich PA cp 16:03 Ervin Aleman PA is PHCP. cp 16:05 Lauren Whitman, KATHY is Primary Nurse. mb9 16:11 Patient has correct armband on for positive identification. iw 16:11 No provider procedures requiring assistance completed. Patient did not have IV access iw during this emergency room visit. 16:32 Trini Velazquez, KATHY is Primary Nurse. iw Administered Medications: 16:33 Drug: Viscous Lidocaine Liquid (4 %) 5 ml Route: Mucous Membrane; iw Medication: 16:11 VIS not applicable for this client. iw Outcome: 18:02 Discharge ordered by MD. cp 18:07 Discharged to home ambulatory. iw 18:07 Condition: good 18:07 Discharge instructions given to patient, Instructed on discharge instructions. 18:07 No charge visit due to suture removal. 18:08 Discharged to home ambulatory. mb9 18:08 Condition: stable 18:08 Discharge instructions given to patient, Instructed on discharge instructions, follow up and referral plans. Demonstrated understanding of instructions, follow-up care. 18:08 Patient left the ED. iw Signatures: James Dietrich PA PA jmm Martinez, Amelia as Trini Velazquez, RN RN iw Ervin Aleman PA PA cp Breneman, Mary Beth, KATHY RN mb9 Corrections: (The following items were deleted from the chart) 16:10 16:04 BP 175 / 93; Pulse 82bpm; iw iw
--- NOTE | 2022-04-16 18:03 | EDPHYS ---
Physician Documentation [facility] Name: Hilary Lowe Age: 76 yrs Sex: Female : 1945 Arrival Date: 04/16/2022 Time: 15:51 Bed 10 Private MD: Clint Anton ED Physician Ricardo Mabry HPI: 04/16 17:00 This 76 yrs old Female presents to ER via Ambulatory with complaints of Suture Removal. cp 17:00 The patient has sutures on the above left eye. Previous treatment: The patient was cp initially treated on April 05, 2022, the care was rendered at [facility], Treatment type: The patient's original treatment included sutures. Sutures/sonia progress: The patient has no c/o's. The wound is well-healing with no redness, swelling, discharge, or dehiscence reported. Historical: - Allergies: 16:10 Bactrim; iw - Immunization history:: Adult Immunizations unknown. - Social history:: Smoking status: Patient denies any tobacco usage or history of. ROS: 17:10 All other systems are negative. cp Exam: 17:15 Constitutional: The patient appears in no acute distress, alert, awake, well developed, cp well nourished. 17:15 Head/face: Noted is a laceration(s), of the above left eye, appears well healed w/o cp dehiscence, swelling, and/or erythema. [address] 17:15 Skin: cellulitis, is not appreciated. Vital Signs: 16:04 BP 175 / 93; Pulse 82; Resp 16; Pulse Ox 98% on R/A; iw 18:04 BP 162 / 89; Pulse 78; Resp 18; Pulse Ox 99% ; mb9 Procedures: 18:10 Suture/Staple removal: Removed 7 sutures, from above left eye, site appears well cp healed, dressed with steri strips. Patient tolerated well. MDM: 16:05 Patient medically screened. cp 18:01 Data reviewed: vital signs, nurses notes. cp 18:01 Counseling: I had a detailed discussion with the patient and/or guardian regarding: the cp historical points, exam findings, and any diagnostic results supporting the discharge/admit diagnosis, to return to the emergency department if symptoms worsen or persist or if there are any questions or concerns that arise at home. Response to treatment: the patient's symptoms have markedly improved after treatment, and as a result, I will discharge patient. Administered Medications: 16:33 Drug: Viscous Lidocaine Liquid (4 %) 5 ml Route: Mucous Membrane; iw Disposition: 04/17 12:20 Co-signature as Attending Physician, Ricardo Mabry DO I reviewed the patient's care ms3 provided by the Advanced Practice Provider and agree with the diagnosis and treatment plan. Disposition Summary: 04/16/22 18:02 Discharge Ordered Location: Home cp Problem: new cp Symptoms: have improved cp Condition: Stable cp Diagnosis - Encounter for removal of sutures cp Followup: cp - With: Emergency Department - When: As needed - Reason: Worsening of condition Discharge Instructions: - Discharge Summary Sheet cp - Suture Removal, Care After cp Forms: - Medication Reconciliation Form cp - Thank You Letter cp - Antibiotic Education cp - Prescription Opioid Use cp Signatures: Triin Velazquez RN RN iw Ervin Aleman PA PA cp Ricardo Mabry DO DO ms3 Corrections: (The following items were deleted from the chart) 17:40 04/16 17:00 Previous treatment: the care was rendered at [facility], Treatment type: The patient's original treatment included sutures, cp
[2022-04-16 18:49] VITALS: BP 162/89; O2SAT 99
== END 2022-04-16 18:08 | disposition home or self-care (01) ==
LOC: ER 15:50
DX: Z48.02 Encounter for removal of sutures (principal)